=== PATIENT | male | born 1965 | race Two or more races ===

== ENCOUNTER 2022-02-22 16:21 | Inpatient (IN) | payer OTHER ==
[~2022-02-22] VITALS: Ht 165.1 cm; Wt 117.9 kg
[2022-02-22] MEDS ORDERED: CHILDREN'S ASPI81 MG (16:41)
[2022-02-22] MEDS ORDERED: COZAAR100 MG PO (16:41)
[2022-02-22] MEDS ORDERED: APRESOLINE 10MG10 MG PO (16:41)
[2022-02-22] MEDS ORDERED: HYDRODIURIL12.5 MG PO (16:41)
[2022-02-22] MEDS ORDERED: METFORMIN HCL1000 M1 PO (16:42)
--- NOTE | 2022-02-22 16:44 | NUR ---
SE RECIBE PTE ALERTA Y ORIENTADO X3 QUIEN REFIERE TENER UN ABSCESO EN EL AREA RECTAL. EL ES PTE DEL DR JANAE FLORES QUIEN REFIERE LE REALIZARON UN CT EL CUAL SALIO CON EL ABSESO, LE RECETO ANTIBIOTICO PARA EL MISMO Y SE LE PREMA EL DOLOR JEAN CLAUDE REFIERE QUE YA NO PUEDE CON EL DOLOR Y LLAMO AL DR NEWELL LO REFIRIO A ER PARA REALIZARLE UN KATT CT. SE MONITOREAN S/V Y SE UBICA.
--- NOTE | 2022-02-22 19:00 | NUR ---
SE REALIZA ADMINISTYRACION DE MEDICAMENTOS POR ORDEN MEDICA, MUESTRAS DE DORINA Y SE MANTIENE EN ESPERA DE CT.
[2022-02-24] MEDS ORDERED: AMOX-CLAV 875-1 EACH PO (08:04)
[2022-02-24] MEDS ORDERED: ULTRACET PO (08:04)
[2022-02-24] MEDS ORDERED: INTESTINEX680 M1 PO (08:04)
== END 2022-02-24 10:50 | disposition home or self-care (01) | DRG 395 ==
LOC: ER 16:21 → SURG 22:43
PROVIDERS: ADMIT Surgery; ATTEND Surgery
PROC: BW21ZZZ Computerized Tomography (CT Scan) of Abdomen and Pelvis (ICD-10-PCS; 2022-02-22)
PROC: 0D9Q3ZZ Drainage of Anus, Percutaneous Approach (ICD-10-PCS; principal; 2022-02-23 15:00)
DX: K61.1 Rectal abscess (principal); K57.30 Diverticulosis of large intestine without perforation or abscess without bleeding; R73.03 Prediabetes; G47.39 Other sleep apnea; B96.29 Other Escherichia coli [E. coli] as the cause of diseases classified elsewhere; B95.2 Enterococcus as the cause of diseases classified elsewhere; I11.9 Hypertensive heart disease without heart failure

== ENCOUNTER 2022-02-28 07:19 | Inpatient (IN) | payer OTHER ==
[~2022-02-28 07:19] MED LIST: AMOX-CLAV 875-1 EACH PO; APRESOLINE 10MG10 MG PO; CHILDREN'S ASPI81 MG; COZAAR100 MG PO; HYDRODIURIL12.5 MG PO; INTESTINEX680 M1 PO; METFORMIN HCL1000 M1 PO; ULTRACET PO
== END 2022-03-26 15:05 | disposition home or self-care (01) | DRG 345 ==
LOC: ER 07:19 → SURG 10:39 → SEC-K 10:39 → SURH 10:39 → SURG 14:15 → SURH 03-09 10:42
PROVIDERS: ADMIT Surgery; ATTEND Surgery
PROC: 0DBQ8ZX Excision of Anus, Via Natural or Artificial Opening Endoscopic, Diagnostic (ICD-10-PCS; 2022-03-01)
PROC: 0D9P8ZZ Drainage of Rectum, Via Natural or Artificial Opening Endoscopic (ICD-10-PCS; principal; 2022-03-01 09:00)
PROC: 8E0ZXY6 Isolation (ICD-10-PCS; 2022-03-04)
PROC: 02HV33Z Insertion of Infusion Device into Superior Vena Cava, Percutaneous Approach (ICD-10-PCS; 2022-03-06)
PROC: 0DQQ7ZZ Repair Anus, Via Natural or Artificial Opening (ICD-10-PCS; 2022-03-11)
PROC: 0J9B0ZZ Drainage of Perineum Subcutaneous Tissue and Fascia, Open Approach (ICD-10-PCS; 2022-03-11)
PROC: 30243N1 Transfusion of Nonautologous Red Blood Cells into Central Vein, Percutaneous Approach (ICD-10-PCS; 2022-03-15)
DX: K61.0 Anal abscess (principal); K57.20 Diverticulitis of large intestine with perforation and abscess without bleeding; L03.317 Cellulitis of buttock; N17.8 Other acute kidney failure; N39.0 Urinary tract infection, site not specified; Z68.41 Body mass index [BMI] 40.0-44.9, adult; K62.89 Other specified diseases of anus and rectum; K61.39 Other ischiorectal abscess; D64.89 Other specified anemias; F43.23 Adjustment disorder with mixed anxiety and depressed mood; E66.01 Morbid (severe) obesity due to excess calories; G47.33 Obstructive sleep apnea (adult) (pediatric); E78.1 Pure hyperglyceridemia; B96.20 Unspecified Escherichia coli [E. coli] as the cause of diseases classified elsewhere

== ENCOUNTER 2022-04-30 07:13 | Day surgery (SDC) | payer OTHER ==
[~2022-04-30] VITALS: Ht 165.1 cm; Wt 100.2 kg
[2022-04-30] MEDS ORDERED: COLACE100 MG PO (10:20)
[2022-04-30] MEDS ORDERED: ULTRACET PO (10:20)
[2022-04-30] MEDS ORDERED: NEURONTIN300 MG PO (10:20)
== END 2022-04-30 13:45 | disposition home or self-care (01) ==
LOC: CIR.AMB 07:13
PROVIDERS: ATTEND Surgery
DX: K61.2 Anorectal abscess (principal); K57.20 Diverticulitis of large intestine with perforation and abscess without bleeding; Z20.822 Contact with and (suspected) exposure to COVID-19; Z91.013 Allergy to seafood; I10 Essential (primary) hypertension; Z99.89 Dependence on other enabling machines and devices; G47.33 Obstructive sleep apnea (adult) (pediatric); R73.03 Prediabetes; E66.9 Obesity, unspecified; Z79.84 Long term (current) use of oral hypoglycemic drugs; Z79.82 Long term (current) use of aspirin